=== PATIENT | female | born 1940 | race Caucasian/White ===

== ENCOUNTER 2016-10-04 20:50 | Emergency (ER) | payer MEDICARE, BC ==
[~2016-10-04] VITALS: Ht 160 cm; Wt 79.5 kg
[2016-10-04] MEDS ORDERED: POTASSIUM CHLO10 ME7 PO (21:22)
[2016-10-04] MEDS ORDERED: COREG 25MG25 MG/TAB PO (21:23)
[2016-10-04] MEDS ORDERED: PREDNISONE 5MG5 MG PO (21:24)
[2016-10-04] MEDS ORDERED: HCTZ 25MG25 MG PO (21:24)
[2016-10-04] MEDS ORDERED: VALSARTAN320 MG PO (21:25)
[2016-10-04] MEDS ORDERED: PERCOCET 325 MG1 TA2 PO (23:01)
[2016-10-04 23:23] VITALS: BP 199/100
== END 2016-10-04 23:20 | disposition home or self-care (01) ==
LOC: ED 20:50
DX: M25.511 Pain in right shoulder (principal); I10 Essential (primary) hypertension
CPT/HCPCS: A4565; J1885

== ENCOUNTER 2018-03-30 13:30 | Outpatient (RCR) | payer MEDICARE, BC ==
[~2018-03-30 13:30] MED LIST: COREG 25MG25 MG/TAB PO; HCTZ 25MG25 MG PO; PERCOCET 325 MG1 TA2 PO; POTASSIUM CHLO10 ME7 PO; PREDNISONE 5MG5 MG PO; VALSARTAN320 MG PO
== END 2018-03-30 14:00 ==
LOC: PT 13:30
DX: M17.11 Unilateral primary osteoarthritis, right knee (principal)
CPT/HCPCS: G8978-GP; G8979-GP

== ENCOUNTER → 2021-10-15 | Outpatient (CLI) | payer MEDICARE, BC | LOC: LAB 19:00 | DX: U07.1 COVID-19 (principal) ==

== ENCOUNTER → 2021-10-17 | Outpatient (CLI) | payer MEDICARE, BC ==
[~2021-10-17] VITALS: Ht 160 cm; Wt 79.5 kg
[2021-10-17 11:32] VITALS: BP 110/71
[2021-10-17 12:29] VITALS: BP 135/85
== END ==
LOC: AMSURD 10:58
DX: U07.1 COVID-19 (principal)
CPT/HCPCS: M0222

== ENCOUNTER → 2022-04-03 | Outpatient (CLI) | payer MEDICARE, BC ==
[2022-04-03 09:35] LABS: BASO # 0.02 K/mm3 (0.02-0.10); EOS # 0.15 K/mm3 (0.04-0.40); EOS % 1.9 % (1.0-5.0); HEMATOCRIT 34.4 % (37.0-47.0); HEMOGLOBIN 10.6 g/dL (12.5-16.0); LYMPH# 0.81 K/mm3 (1.50-4.00); MEAN CELL VOLUME 98 fl (78-100); MEAN CORPUSCULAR HEMOGLOBIN 30 pg (27-31); MEAN CORPUSCULAR HGB CONC 31 g/dL (33-37); MEAN PLATELET VOLUME 10.3 fl (7.4-10.4); MONO # 0.42 K/mm3 (0.20-0.80); NEU # 6.44 K/mm3 (1.40-6.50); PLATELET COUNT 177 K/mm3 (130-400); RED BLOOD COUNT 3.53 M/mm3 (4.10-5.30); RED CELL DISTRIBUTION WIDTH 14.3 % (11.5-14.5); WHITE BLOOD COUNT 7.9 K/mm3 (4.8-10.8)
[2022-04-03 09:39] LABS: ALBUMIN 3.6 g/dL (3.4-4.8); POTASSIUM 3.5 mmol/L (3.5-5.1)
[2022-04-03 09:41] LABS: CALCIUM 9.3 mg/dL (8.3-10.5)
[2022-04-03 09:42] LABS: TOTAL PROTEIN 6.1 g/dL (6.2-8.1)
[2022-04-03 09:44] LABS: TOTAL BILIRUBIN 0.5 mg/dL (0.2-1.2)
== END ==
LOC: LAB 09:14
PROVIDERS: Internal Medicine Interventional Cardiology
DX: R60.9 Edema, unspecified (principal)

== ENCOUNTER → 2024-04-17 | Outpatient (CLI) | payer MEDICARE, BC ==
[2024-04-17 14:48] LABS: BASO # 0.03 K/mm3 (0.02-0.10); EOS % 1.3 % (1.0-5.0); HEMATOCRIT 34.8 % (37.0-47.0); HEMOGLOBIN 10.4 g/dL (12.5-16.0); LYMPH# 0.87 K/mm3 (1.50-4.00); MEAN CELL VOLUME 95 fl (78-100); MEAN CORPUSCULAR HEMOGLOBIN 29 pg (27-31); MEAN CORPUSCULAR HGB CONC 30 g/dL (33-37); MEAN PLATELET VOLUME 9.7 fl (7.4-10.4); MONO # 0.43 K/mm3 (0.20-0.80); NEU # 6.24 K/mm3 (1.40-6.50); PLATELET COUNT 205 K/mm3 (130-400); RED BLOOD COUNT 3.65 M/mm3 (4.10-5.30); RED CELL DISTRIBUTION WIDTH 13.7 % (11.5-14.5); WHITE BLOOD COUNT 7.7 K/mm3 (4.8-10.8)
[2024-04-17 14:58] LABS: ALBUMIN 3.7 g/dL (3.4-4.8)
[2024-04-17 14:59] LABS: CALCIUM 9.6 mg/dL (8.3-10.5)
[2024-04-17 15:00] LABS: TOTAL PROTEIN 6.8 g/dL (6.2-8.1)
[2024-04-17 15:02] LABS: TOTAL BILIRUBIN 0.3 mg/dL (0.2-1.2)
== END ==
LOC: LAB 14:31
PROVIDERS: Family Medicine
DX: I10 Essential (primary) hypertension (principal); E78.5 Hyperlipidemia, unspecified; E55.9 Vitamin D deficiency, unspecified

== ENCOUNTER → 2024-05-20 | Outpatient (CLI) | payer MEDICARE, BC | LOC: LAB 17:25 | DX: R60.0 Localized edema (principal) ==